=== PATIENT | male | born 1955 | race Hispanic/Latino ===

== ENCOUNTER 2017-12-08 10:20 | Day surgery (SDC) | payer BC ==
[2017-12-01 08:32] VITALS: BMI 30.3
[2017-12-08 10:58] VITALS: TEMP 98
[2017-12-08] MEDS ORDERED: Lidocaine 1% Inj (20ml) ONE (12:53)
[2017-12-08] MEDS ORDERED: Propofol 10 mg/ml Inj (20 ML) ONE ×2 (12:53→13:10)
[2017-12-08] MEDS ORDERED: Sodium Chloride 0.9% 1,000 ML IV SCH (13:30)
[2017-12-08 13:53] VITALS: O2SAT 99
[2017-12-08 15:48] VITALS: BP 130/77; PULSE 63; RESP 16
== END 2017-12-08 15:35 | disposition home or self-care (01) ==
LOC: ENDO 10:20
PROVIDERS: ATTEND Internal Medicine Gastroenterology
DX: K22.2 Esophageal obstruction (principal); D13.0 Benign neoplasm of esophagus; K25.9 Gastric ulcer, unspecified as acute or chronic, without hemorrhage or perforation; K29.50 Unspecified chronic gastritis without bleeding; K44.9 Diaphragmatic hernia without obstruction or gangrene; D50.9 Iron deficiency anemia, unspecified; I10 Essential (primary) hypertension
CPT/HCPCS: 43239; 88305; 88312; 88342; J2704; J7040 ×2

== ENCOUNTER 2018-01-22 15:08 | Inpatient (IN) | payer BC ==
[2018-01-22 15:18] VITALS: BMI 30.9
--- NOTE | 2018-01-22 15:36 | ED PDOC ---
Arrival/HPI - General Time Seen by Provider: 01/22/18 15:11 Historian: Patient - History of Present Illness Narrative History of Present Illness (Text): 62 year old male presents from his PMD office after beeing seen for a hernia. Patient states he was golfing Thursday and that evening he felt as if there was a "brick in his belly". He stated initially his pain was a 2/10. he saw his PMD today who was unable to reduce it and was sent to the hospital for evaluation of the hernia. Patient states the pain is currently 1/10. Patient stated his last bowel movement was at 1pm today. Patient denies nausea, vomiting , chest pain, fever, chills or any other complaints at this time. 01/22/18 15:33 Time/Duration: < week Symptom Onset: Sudden Symptom Course: Improving Quality: Other Severity Level: 1 Activities at Onset: Sleeping Past Medical History - Provider Review Nursing Documentation Reviewed: Yes - Cardiac Hx Pacemaker: No - Neurological Hx Paralysis: No - Hematological/Oncological Hx Blood Transfusions: No - Musculoskeletal/Rheumatological Hx Musculoskeletal Disorders: No - Psychiatric Hx Emotional Abuse: No Hx Physical Abuse: No Hx Substance Use: No - Anesthesia Hx Anesthesia Reactions: No Hx Malignant Hyperthermia: No - Suicidal Assessment Feels Threatened In Home Enviroment: No Family/Social History - Physician Review Nursing Documentation Reviewed: Yes Family/Social History: No Known Family HX Hx Alcohol Use: Yes (1-2 DRINKS/DAY) Hx Substance Use: No Allergies/Home Meds Allergies/Adverse Reactions: Allergies No Known Allergies Allergy (Verified 10/26/14 10:47) Home Medications: Home Meds Medication Instructions Recorded Confirmed Losartan/Hydrochlorothiazide 1 tab PO QPM 12/01/17 12/08/17 [Losartan-Hctz 100-25 mg Tab] Rosuvastatin Calcium [Rosuvastatin 10 mg PO QPM 12/01/17 12/08/17 Calcium] Spironolactone [Aldactone] 25 mg PO QPM 12/01/17 12/08/17 amLODIPine [Norvasc] 10 mg PO QPM 12/01/17 12/08/17 Omeprazole 40 mg PO DAILY 12/08/17 12/08/17 Review of Systems - Review of Systems Constitutional: Normal Eyes: Normal ENT: Normal Respiratory: Normal Cardiovascular: Normal. absent: Chest Pain, Syncope Gastrointestinal: Abdominal Pain. absent: Stool Changes, Constipation, Diarrhea , Nausea, Vomiting Genitourinary Male: Normal Musculoskeletal: Normal Skin: Normal Neurological: Normal Endocrine: Normal Hemo/Lymphatic: Normal Physical Exam Vital Signs Reviewed: Yes Vital Signs Temp Pulse Resp BP Pulse Ox 01/22/18 15:15 98.5 F 80 20 139/72 97 Temperature: Afebrile Blood Pressure: Normal Pulse: Regular Respiratory Rate: Normal Appearance: Positive for: Well-Appearing, Non-Toxic, Comfortable Pain Distress: None Mental Status: Positive for: Alert and Oriented X 3 - Systems Exam Head: Present: Atraumatic, Normocephalic Pupils: Present: PERRL Extroacular Muscles: Present: EOMI Conjunctiva: Present: Normal Mouth: Present: Moist Mucous Membranes Neck: Present: Normal Range of Motion Respiratory/Chest: Present: Clear to Auscultation. No: Respiratory Distress, Accessory Muscle Use Cardiovascular: Present: Regular Rate and Rhythm, Normal S1, S2. No: Murmurs Abdomen: Present: Hernias. No: Tenderness, Distention, Normal Bowel Sounds, Peritoneal Signs Upper Extremity: No: Edema Lower Extremity: No: Edema Neurological: Present: GCS=15, CN II-XII Intact Skin: Present: Warm Psychiatric: Present: Alert, Oriented x 3 Medical Decision Making ED Course and Treatment: Plan -CBC, CMP, IV fluids -surgical consult -VBG shock -reasses Attempted to reduce hernia but not successful 01/22/18 15:39 spoke to surgical assistant certified resident, will evaluate patient and consult Dr. Buck 01/22/18 16:01 - RAD Interpretation Radiology Orders: 01/22/18 15:53 ABDOMEN & PELVIS [ABD PELVIS PO & IV CONTRAST] [CT] Stat - Medication Orders Current Medication Orders: Sodium Chloride (Sodium Chloride 0.9%) 1,000 mls @ 100 mls/hr IV .Q10H [facility] Last Admin: 01/22/18 15:49 Dose: 100 mls/hr eMAR Start Stop Document 01/22/18 15:49 OCS (Rec: 01/22/18 15:50 OCS [id number]) Intravenous Solution Start Date 01/22/18 Start Time 15:49 Disposition/Present on Arrival - Present on Arrival Any Indicators Present on Arrival: No - Disposition
[2018-01-22] MEDS ORDERED: Sodium Chloride 0.9% 1,000 ML IV SCH (15:45)
[2018-01-22] MEDS ORDERED: Iohexol 240 (50 ml) ONE (15:57)
[2018-01-22 16:00] LABS: BASO # 0.01 K/mm3 (0.0-2.0); BASO % 0.1 % (0.0-3.0); EOS # 0.2 (0.0-0.7); EOS % 2.3 % (1.5-5.0); GRAN # 5.07 (1.4-6.5); GRAN % 69.2 % (50.0-68.0); HEMOGLOBIN 13.7 g/dL (14.0-18.0); LYMPH # 1.5 (1.2-3.4); LYMPH % 20.5 % (22.0-35.0); MEAN CELL VOLUME 88.3 fl (80.0-105.0); MEAN CORPUSCULAR HEMOGLOBIN 30.3 pg (25.0-35.0); MEAN CORPUSCULAR HGB CONC 34.3 g/dl (31.0-37.0); MEAN PLATELET VOLUME 8.5 fl (7.0-11.0); MONO # 0.6 (0.1-0.6); MONO % 7.9 % (1.0-6.0); RBC 4.52 10^6/uL (3.5-6.1); WHITE BLOOD COUNT 7.3 10^3/ul (4.5-11.0)
[2018-01-22 16:18] LABS: ALB/GLOB RATIO 1.4 (1.1-1.8); ALBUMIN 4.2 g/dL (3.0-4.8); ALT/SGPT 26 U/L (7-56); AST/SGOT 28 U/L (17-59); BLOOD UREA NITROGEN 22 mg/dL (7-21); GFR AFRICAN-AMERICAN > 60; GFR NON-AFRICAN AMERICAN > 60
[2018-01-22] MEDS ORDERED: Morphine 2 mg/ml ISec IVP STA (16:35)
--- NOTE | 2018-01-22 16:42 | CP.PCM.CON ---
History of Present Illness - History of Present Illness History of Present Illness: General Surgery consult for Dr. Buck Consulted for: incarcerated inguinal hernia Patient is a 62M who presented to the ED referred by primary physician, Dr. Wall, for irreducible left inguinal hernia. Patient states that 2 days ago while golfing he began experiencing a sensation of heaviness in the left lower abdominal quadrant that worsened throughout the day, but was not painful. Yesterday he noted a bulge in his left groin, that was larger this AM and associated with more discomfort, though he denies any pain. Patient states that he the bulge was not reducible and that Dr. Wall was unable to reduce it in his office, so sent him to the ER. Patient denies any abdominal pain, nausea, vomiting, fevers, chills, numbness or tingling, constipation, or diarrhea, or blood in his stools. Says that he is have flatus and he has had a bowel movement this afternoon that was normal color and consistency. This has never occurred before PMH: HTN, HLD, GERD, chronic lower back pain, arthritis, PSH: none ALL; none Social: denies tobacco, drinks 1-2 glasses of wine/beer/day, denies any illicit substances, is a retired financial service representative Review of Systems - Review of Systems All systems: reviewed and no additional remarkable complaints except (as per HPI ) Past Patient History - Infectious Disease Hx of Infectious Diseases: None - Past Medical History & Family History Past Medical History?: Yes Past Family History: Reviewed and not pertinent Pertinent Family History: Father of heart attack @ age 65 - Past Social History Smoking Status: Never Smoked Alcohol: < 2 Drinks/Day (1-2 glasses of wine or beerr/day) Drugs: Denies Home Situation {Lives}: With Family - CARDIAC Hx Pacemaker: No - PULMONARY Hx Respiratory Disorders: No - NEUROLOGICAL Hx Paralysis: No - HEENT Hx HEENT Problems: No - RENAL Hx Chronic Kidney Disease: No - ENDOCRINE/METABOLIC Hx Endocrine Disorders: No - HEMATOLOGICAL/ONCOLOGICAL Hx Blood Transfusions: No - INTEGUMENTARY Hx Dermatological Problems: No - MUSCULOSKELETAL/RHEUMATOLOGICAL Hx Musculoskeletal Disorders: No - GASTROINTESTINAL Hx Gastrointestinal Disorders: Yes Hx Gastroesophageal Reflux: Yes - GENITOURINARY/GYNECOLOGICAL Hx Genitourinary Disorders: No - PSYCHIATRIC Hx Emotional Abuse: No Hx Physical Abuse: No Hx Substance Use: No - SURGICAL HISTORY Hx Surgeries: No - ANESTHESIA Hx Anesthesia Reactions: No Hx Malignant Hyperthermia: No Meds Allergies/Adverse Reactions: Allergies Allergy/AdvReac Type Severity Reaction Status Date / Time No Known Allergies Allergy Verified 10/26/14 10:47 - Medications Medications: Current Medications Sodium Chloride (Sodium Chloride 0.9%) 1,000 mls @ 100 mls/hr IV .Q10H [facility] Last Admin: 01/22/18 15:49 Dose: 100 mls/hr Physical Exam - Constitutional Appears: Well, Non-toxic, No Acute Distress - Head Exam Head Exam: ATRAUMATIC, NORMOCEPHALIC - Eye Exam Eye Exam: Normal appearance. absent: Conjunctival injection, Scleral icterus - ENT Exam ENT Exam: Mucous Membranes Moist, Normal Oropharynx - Respiratory Exam Respiratory Exam: NORMAL BREATHING PATTERN. absent: Accessory Muscle Use, Respiratory Distress - Cardiovascular Exam Cardiovascular Exam: RRR - GI/Abdominal Exam GI & Abdominal Exam: Soft. absent: Distended, Rebound, Tenderness - Exam Exam: Circumcision. absent: Scrotal Swelling, Testicular Tenderness Additional comments: left inguinal hernia, incarcerated, moderately tender to palpation, no overlying skin changes, no erythema or induration - Extremities Exam Extremities exam: Positive for: pedal pulses present. Negative for: calf tenderness, pedal edema - Neurological Exam Neurological exam: Alert, Oriented x3 - Psychiatric Exam Psychiatric exam: Normal Affect, Normal Mood - Skin Skin Exam: Dry, Intact, Warm Additional comments: Erythema solare of the face, trunks, and upper extremities Results - Vital Signs Recent Vital Signs: Last Vital Signs Temp 98.5 F 01/22/18 15:15 Pulse 80 01/22/18 15:15 Resp 20 01/22/18 15:15 BP 139/72 01/22/18 15:15 Pulse Ox 97 01/22/18 15:15 - Labs Result Diagrams: 01/22/18 15:45 01/22/18 15:45 Labs: Laboratory Results - last 24 hr 01/22/18 01/22/18 15:45 15:45 WBC 7.3 RBC 4.52 Hgb 13.7 L Hct 39.9 L MCV 88.3 MCH 30.3 MCHC 34.3 RDW 12.0 Plt Count 190 MPV 8.5 Gran % 69.2 H Lymph % (Auto) 20.5 L [place] % (Auto) 7.9 H Eos % (Auto) 2.3 Baso % (Auto) 0.1 Gran # 5.07 Lymph # (Auto) 1.5 [place] # (Auto) 0.6 Eos # (Auto) 0.2 Baso # (Auto) 0.01 Sodium 140 Potassium 4.6 Chloride 101 Carbon Dioxide 29 Anion Gap 14 BUN 22 H Creatinine 0.9 Est GFR ( Amer) > 60 Est GFR (Non-Af Amer) > 60 Random Glucose 96 Calcium 9.0 Total Bilirubin 0.4 AST 28 ALT 26 Alkaline Phosphatase 72 Total Protein 7.3 Albumin 4.2 Globulin 3.1 Albumin/Globulin Ratio 1.4 Assessment & Plan - Assessment and Plan (Free Text) Assessment: 62M with incacerated left inguinal hernia, possible diverticulitis CT with PO contrast demonstrated fat containing left inguinal hernia with fat stranding of the contents and inflammation of the nearby sigmoid colon. Also diffuse diverticulosis of the colon worst in the sigmoid, concern for diverticulitis of the sigmoid near the hernia site Plan: Admit to med/surgery NPO IVF PRN pain and nausea medication IV antibiotics Repeat labs in the AM No indication for immediate surgical intervention--patient is afebrile, hemodynamically stable, only mildly tender, abdomen soft, has no bowel contents in the hernia, and has no leukocytosis. Will re-assess in the morning after hydration, pain control, and will decide about possible OR for hernia repair at that time Close vitals monitoring Discussed with Dr. Buck who agrees with above Qi Monteiro, PGY2
[2018-01-22 17:32] LABS: VENOUS BLOOD GAS BASE EXCESS 3.5 mmol/L (0.0-2.0); VENOUS BLOOD GAS PO2 26 mm/Hg (30-55); VENOUS BLOOD PH 7.34 (7.32-7.43)
--- NOTE | 2018-01-22 19:43 | CT ---
EXAM: CT Abdomen and Pelvis With Intravenous Contrast EXAM DATE/TIME: 01/22/2018 3:53 PM CLINICAL HISTORY: 62 years old, male; Pain; Abdominal pain; Localized; Left; Additional info: Hernia TECHNIQUE: Axial computed tomography images of the abdomen and pelvis with intravenous contrast. All CT scans at this facility use at least one of these dose optimization techniques: automated exposure control; mA and/or kV adjustment per patient size (includes targeted exams where dose is matched to clinical indication); or iterative reconstruction. Coronal and sagittal reformatted images were created and reviewed. COMPARISON: There are no prior studies for comparison. FINDINGS: Lung bases: Heart size is normal. There is a hiatal hernia. There is dependent atelectasis at the lung bases. ABDOMEN: Liver: unremarkable Gallbladder and bile ducts: unremarkable Pancreas: unremarkable Spleen: unremarkable Adrenals: unremarkable Kidneys and ureters: There is a 6 mm left renal cyst. There is a very small right renal cyst. There is minimal right renal scarring. There is mild pelvo-ureterectasis. Stomach and bowel: Stomach is almost empty. Rotation is normal. There is oral contrast in mid and distal small bowel. There is no obstruction. Terminal ileum is unremarkable. Appendix is not visualized. There is no pericecal inflammation.There is moderate stool in the colon. There is diverticulosis. Diverticular disease is greatest in the sigmoid. A loop of sigmoid extends into the region of the orifice of the left inguinal hernia. There is mild edema and inflammation about the sigmoid at the orifice to the hernia. There is no definite extension of bowel into the hernia. PELVIS: Appendix: See stomach and bowel Bladder: Bladder is distended. Reproductive: Prostate is mildly enlarged. Seminal vesicles are unremarkable. ABDOMEN and PELVIS: Intraperitoneal space: There is no free air or free fluid. Bones/joints: There are degenerative changes in the osseus structures. Soft tissues: There is a large fat-containing left inguinal hernia. There is mild inflammation in the herniated fat. There is minimal fluid in the left inguinal hernia. There is a small fat containing right inguinal hernia Vasculature: There are vascular calcifications. Lymph nodes: There is no pathologic adenopathy. IMPRESSION: Large left fat-containing inguinal hernia with a small amount of fluid and inflammation suggests incarceration; extensive sigmoid diverticulosis, inflammation about the sigmoid adjacent to the orifice of the left inguinal hernia suggest possible diverticulitis; no acute solid visceral abnormality Additional nonemergent findings as described above.
[2018-01-22] MEDS ORDERED: Morphine 4 mg/ml ISec IVP STA (19:57)
--- NOTE | 2018-01-22 20:06 | ED PDOC ---
Arrival/HPI - General Historian: Patient - History of Present Illness Time/Duration: < week Symptom Onset: Sudden Symptom Course: Unchanged Quality: Other ("brick in belly") Severity Level: 1 Activities at Onset: Sleeping <Eddie Mac - Last Filed: 01/22/18 20:44> <GouldLarry - Last Filed: 01/22/18 21:09> - General Chief Complaint: Abdominal Pain Time Seen by Provider: 01/22/18 15:11 - History of Present Illness Narrative History of Present Illness (Text): 62 year old male presents from his PMD office with a inguinal hernia. Patient states he was golfing this past thursday and afterwards felt like there was a "brick in his belly". He felt a mass in the abdominal area but his pain was 2/ 10. He went to his PMD today around 2 pm and PMD was unable to reduce the hernia and was sent here for evaluation. Patient states he had a bowel movement around 1pm today, denies any nausea,vomiting, fever, chills, SOB, CP or any other complaints at this time. (Eddie Mac) Past Medical History - Provider Review Nursing Documentation Reviewed: Yes - Infectious Disease Hx of Infectious Diseases: None - Cardiac Hx Pacemaker: No - Pulmonary Hx Respiratory Disorders: No - Neurological Hx Paralysis: No - HEENT Hx HEENT Disorder: No - Renal Hx Renal Disorder: No - Endocrine/Metabolic Hx Endocrine Disorders: No - Hematological/Oncological Hx Blood Transfusions: No - Integumentary Hx Dermatological Disorder: No - Musculoskeletal/Rheumatological Hx Musculoskeletal Disorders: No - Gastrointestinal Hx Gastrointestinal Disorders: Yes Hx Gastroesophageal Reflux: Yes - Genitourinary/Gynecological Hx Genitourinary Disorders: No - Psychiatric Hx Emotional Abuse: No Hx Physical Abuse: No Hx Substance Use: No - Anesthesia Hx Anesthesia Reactions: No Hx Malignant Hyperthermia: No - Suicidal Assessment Feels Threatened In Home Enviroment: No <Eddie Mac - Last Filed: 01/22/18 20:44> Family/Social History - Physician Review Nursing Documentation Reviewed: Yes Family/Social History: No Known Family HX Smoking Status: Never Smoked Hx Alcohol Use: Yes (1-2 DRINKS/DAY) Hx Substance Use: No <Eddie Mac - Last Filed: 01/22/18 20:44> Allergies/Home Meds <Eddie Mac - Last Filed: 01/22/18 20:44> <Larry Gould - Last Filed: 01/22/18 21:09> Allergies/Adverse Reactions: Allergies No Known Allergies Allergy (Verified 10/26/14 10:47) Home Medications: Home Meds Medication Instructions Recorded Confirmed Losartan/Hydrochlorothiazide 1 tab PO QPM 12/01/17 01/22/18 [Losartan-Hctz 100-25 mg Tab] Rosuvastatin Calcium [Rosuvastatin 10 mg PO QPM 12/01/17 01/22/18 Calcium] Spironolactone [Aldactone] 25 mg PO QPM 12/01/17 01/22/18 amLODIPine [Norvasc] 10 mg PO QPM 12/01/17 01/22/18 Omeprazole 40 mg PO DAILY 12/08/17 01/22/18 Review of Systems - Review of Systems Constitutional: Normal Eyes: Normal ENT: Normal Respiratory: Normal Cardiovascular: Normal Gastrointestinal: Abdominal Pain. absent: Stool Changes, Constipation, Diarrhea , Nausea, Vomiting Genitourinary Male: absent: Dysuria, Frequency, Hematuria Musculoskeletal: absent: Back Pain Skin: Normal Neurological: Normal Endocrine: Normal Hemo/Lymphatic: Normal Psychiatric: Normal <Eddie Mac - Last Filed: 01/22/18 20:44> Physical Exam Vital Signs Reviewed: Yes Temperature: Afebrile Blood Pressure: Normal Pulse: Regular Respiratory Rate: Normal Appearance: Positive for: Well-Appearing, Non-Toxic, Comfortable Pain Distress: Mild Mental Status: Positive for: Alert and Oriented X 3 - Systems Exam Head: Present: Atraumatic, Normocephalic Pupils: Present: PERRL Extroacular Muscles: Present: EOMI Conjunctiva: Present: Normal Mouth: Present: Moist Mucous Membranes Neck: Present: Normal Range of Motion Respiratory/Chest: Present: Clear to Auscultation, Good Air Exchange. No: Respiratory Distress, Accessory Muscle Use Cardiovascular: Present: Regular Rate and Rhythm, Normal S1, S2. No: Murmurs Abdomen: Present: Tenderness, Hernias (left inguinal hernia ). No: Distention, Peritoneal Signs, Guarding Upper Extremity: No: Edema Lower Extremity: No: Edema Neurological: Present: GCS=15, CN II-XII Intact Skin: Present: Warm Psychiatric: Present: Alert, Oriented x 3 <Eddie Mac Last Filed: 01/22/18 20:44> Vital Signs Temp Pulse Resp BP Pulse Ox 01/22/18 19:37 98.2 F 70 20 140/71 98 01/22/18 15:15 98.5 F 80 20 139/72 97 Medical Decision Making - Lab Interpretations I have reviewed the lab results: Yes <Eddie Mac - Last Filed: 01/22/18 20:44> Re-evaluation Time: 19:30 Reassessment Condition: Improving,but remains with symptoms - Critical Care Critical Care Minutes: 30 minutes Critical Care Time: Excluding Proc Time - Lab Interpretations Interpretation: All labs normal - RAD Interpretation Software Recruiter: Radiologist <Larry Gould - Last Filed: 01/22/18 21:09> ED Course and Treatment: Plan -CBC, CMP, Fluids, morphine -CT abdomen -reasses -surgery consult CT abdomen: Large left fat-containing inguinal hernia with a small amount of fluid and inflammation suggests incarceration; extensive sigmoid diverticulosis, inflammation about the sigmoid adjacent to the orifice of the left inguinal hernia suggest possible diverticulitis; no acute solid visceral abnormality Patient will be admitted under Dr. Woodall service with Dr. Buck on consult for surgery Patient states pain is radiating to his belly, additional pain medication given 01/22/18 20:50 (Eddie Mac) I performed the hx and physical exam of the patient and discussed their mgt with the RESIDENT. I reviewed the RESIDENT's NOTE and agree with the assessment and plan of care. exam: abd - + left lower abd tenderness, noted inguinal region swelling/unable to reduce, + inguinal region tenderness on exam; +BS/soft/nd, no crawford's sign, no mcburney's point tenderness, no masses/rebound/guarding/rigidity; well nourished male pt is resting in bed, awaiting diagnostic results will page surgery [address] results, will reconsult surgery and contact Dr Alfred (spinneret person for Dr Wall) for admission pt is made aware of his medical results pt currently has more pain pt will be admitted for further treatment/monitor (Larry Gould) - Critical Care Narrative Critical Care (Text): 01/22/18 21:00 critical care time: 30min, excluding procedure time, excluding time teaching residents/students/mid-level providers; including initial eval/diagnosis, diagnostic interpretation, re-eval, consultations, final disposition (Larry Gould) - Lab Interpretations Lab Results: 01/22/18 15:45 01/22/18 15:45 Lab Results 01/22/18 17:10: pO2 26 L, VBG pH 7.34, VBG pCO2 57.0, VBG HCO3 30.8 H, VBG Total CO2 32.5 H, VBG O2 Sat (Calc) 54.8, VBG Base Excess 3.5 H, VBG Potassium 3.9, Glucose 91, Lactate 0.8, FiO2 21.0, Sodium 137.0, Chloride 101.0, Venous Blood Potassium 3.9 01/22/18 15:45: Sodium 140, Potassium 4.6, Chloride 101, Carbon Dioxide 29, Anion Gap 14, BUN 22 H, Creatinine 0.9, Est GFR ( Amer) > 60, Est GFR ( Non-Af Amer) > 60, Random Glucose 96, Calcium 9.0, Total Bilirubin 0.4, AST 28, ALT 26, Alkaline Phosphatase 72, Total Protein 7.3, Albumin 4.2, Globulin 3.1, Albumin/Globulin Ratio 1.4 01/22/18 15:45: WBC 7.3, RBC 4.52, Hgb 13.7 L, Hct 39.9 L, MCV 88.3, MCH 30.3, MCHC 34.3, RDW 12.0, Plt Count 190, MPV 8.5, Gran % 69.2 H, Lymph % (Auto) 20.5 L, [place] % (Auto) 7.9 H, Eos % (Auto) 2.3, Baso % (Auto) 0.1, Gran # 5.07, Lymph # (Auto) 1.5, [place] # (Auto) 0.6, Eos # (Auto) 0.2, Baso # (Auto) 0.01 - RAD Interpretation Narrative RAD Interpretations (Text): 01/22/18 21:02 CT ABD/PELVIS: IMPRESSION: Large left fat-containing inguinal hernia with a small amount of fluid and inflammation suggests incarceration; extensive sigmoid diverticulosis, inflammation about the sigmoid adjacent to the orifice of the left inguinal hernia suggest possible diverticulitis; no acute solid visceral abnormality Additional nonemergent findings as described above. Thank you for allowing us to participate in the care of your patient. Dictated and Authenticated by: Sarah Alston MD (Larry Gould) Radiology Orders: 01/22/18 15:53 ABDOMEN & PELVIS [ABD PELVIS PO & IV CONTRAST] [CT] Stat - Medication Orders Current Medication Orders: Sodium Chloride (Sodium Chloride 0.9%) 1,000 mls @ 100 mls/hr IV .Q10H [facility] Last Admin: 01/22/18 15:49 Dose: 100 mls/hr eMAR Start Stop Document 01/22/18 15:49 OCS (Rec: 01/22/18 15:50 OCS [id number]) Intravenous Solution Start Date 01/22/18 Start Time 15:49 Lactated Ringer's (Lactated Ringer's) 1,000 mls @ 125 mls/hr IV .Q8H [facility] Ciprofloxacin (Cipro 400mg/200ml Dsw) 400 mg in 200 mls @ 133.3 mls/hr IVPB Q12 ALEXANDER PRN Reason: Protocol Stop: 01/22/18 23:31 Metronidazole (Flagyl) 500 mg in 100 mls @ 100 mls/hr IVPB Q8 ALEXANDER PRN Reason: Protocol Discontinued Medications Morphine Sulfate (Morphine) 4 mg IVP STAT STA Stop: 01/22/18 19:58 Last Admin: 01/22/18 20:05 Dose: 4 mg MAR Pain Assessment Document 01/22/18 20:05 OCS (Rec: 01/22/18 20:05 [id number] Pain Reassessment Is this a pain reassessment? No Sleep Is patient sleeping during reassessment? No Presence of Pain Presence of Pain Yes Pain Scale Used Pain Scale Used Numeric Location Left, Right or Bilateral Left Upper or Lower Lower Pain Location Body Site Abdomen Description Description Constant Intensity of Pain at present 8 Aggravating Factors ADL's IVP Administration Document 01/22/18 20:05 OCS (Rec: 01/22/18 20:05 [id number] Charges for Administration # of IVP Administrations 1 Disposition/Present on Arrival - Present on Arrival Any Indicators Present on Arrival: No History of DVT/PE: No History of Uncontrolled Diabetes: No Urinary Catheter: No History of Decub. Ulcer: No History Surgical Site Infection Following: None - Disposition Have Diagnosis and Disposition been Completed?: Yes Disposition Time: 20:52 <Eddie Mac - Last Filed: 01/22/18 20:44> - Disposition Patient Plan: Admission <Larry Gould - Last Filed: 01/22/18 21:09> - Disposition Diagnosis: Inguinal hernia, Diverticulosis, Diverticulitis, Incarcerated inguinal hernia Disposition: HOSPITALIZED Patient Problems: Current Active Problems Problem Status Onset Diverticulitis Acute Diverticulosis Acute Inguinal hernia Acute Condition: STABLE
[2018-01-22] MEDS ORDERED: Lactated Ringer's 1,000 ML IV SCH (20:45)
[2018-01-22] MEDS ORDERED: Morphine 4 mg/ml ISec IVP PRN (21:11)
[2018-01-22] MEDS ORDERED: Ciprofloxacin 400mg/200ml D5W 400 MG/200 ML BAG IVPB SCH (22:00)
[2018-01-22] MEDS: metroNIDAZOLE IV 500 mg/100 ml 500 MG/100 ML BAG IVPB SCH (22:52)
[2018-01-23] MEDS ORDERED: Lactated Ringer's 1,000 ML IV SCH (00:52)
[2018-01-23] MEDS: metroNIDAZOLE IV 500 mg/100 ml 500 MG/100 ML BAG IVPB SCH ×3 (05:44→21:55)
--- NOTE | 2018-01-23 08:26 | CP.PCM.PN ---
Objective - Vital Signs/Intake and Output Vital Signs (last 24 hours): Temp Pulse Resp BP Pulse Ox 97.6 F 68 20 134/76 97 01/23/18 08:09 01/23/18 08:09 01/23/18 08:09 01/23/18 08:09 01/23/18 08:09 Intake and Output: 01/23/18 01/23/18 06:59 18:59 Intake Total 0 Balance 0 - Medications Medications: Current Medications Metronidazole (Flagyl) 500 mg in 100 mls @ 100 mls/hr IVPB Q8 ALEXANDER PRN Reason: Protocol Last Admin: 01/23/18 05:44 Dose: 100 mls/hr Ciprofloxacin (Cipro 400mg/200ml Dsw) 400 mg in 200 mls @ 133.3 mls/hr IVPB Q12H [facility]ER PRN Reason: Protocol Stop: 01/24/18 11:31 Lactated Ringer's (Lactated Ringer's) 1,000 mls @ 150 mls/hr IV .Q6H40M [facility] Last Admin: 01/23/18 05:40 Dose: Not Given Morphine Sulfate (Morphine) 4 mg IVP Q4H PRN PRN Reason: Pain, moderate (4-7) Last Admin: 01/22/18 23:29 Dose: 4 mg
[2018-01-23 08:51] LABS: BASO # 0.01 K/mm3 (0.0-2.0); BASO % 0.2 % (0.0-3.0); EOS # 0.2 (0.0-0.7); EOS % 3.4 % (1.5-5.0); GRAN # 3.17 (1.4-6.5); GRAN % 67.6 % (50.0-68.0); HEMOGLOBIN 13.1 g/dL (14.0-18.0); LYMPH # 0.9 (1.2-3.4); LYMPH % 19.4 % (22.0-35.0); MEAN CORPUSCULAR HEMOGLOBIN 30.3 pg (25.0-35.0); MEAN CORPUSCULAR HGB CONC 34.5 g/dl (31.0-37.0); MEAN PLATELET VOLUME 8.4 fl (7.0-11.0); MONO # 0.4 (0.1-0.6); MONO % 9.4 % (1.0-6.0); RBC 4.32 10^6/uL (3.5-6.1); RED CELL DISTRIBUTION WIDTH 11.9 % (11.5-14.5); WHITE BLOOD COUNT 4.7 10^3/ul (4.5-11.0)
[2018-01-23 08:56] LABS: INR 0.99 (0.93-1.08); PARTIAL THROMBOPLASTIN TIME 28.8 Seconds (25.1-36.5); PROTHROMBIN TIME 11.4 SECONDS (9.4-12.5)
[2018-01-23 09:07] LABS: BLOOD UREA NITROGEN 16 mg/dL (7-21); CALCIUM 8.9 mg/dL (8.4-10.5); GFR AFRICAN-AMERICAN > 60; GFR NON-AFRICAN AMERICAN > 60
--- NOTE | 2018-01-23 09:24 | RAD ---
HISTORY: Preop COMPARISON: 02/09/2015. FINDINGS: LUNGS: No active pulmonary disease. PLEURA: No significant pleural effusion identified, no pneumothorax apparent. CARDIOVASCULAR: No radiographic findings to suggest acute or significant cardiovascular disease. OSSEOUS STRUCTURES: No significant abnormalities. VISUALIZED UPPER ABDOMEN: Normal. OTHER FINDINGS: None. IMPRESSION: No active disease. No significant interval change compared to the prior examination(s).
[2018-01-23] MEDS: Ciprofloxacin 400mg/200ml D5W 400 MG/200 ML BAG IVPB SCH ×2 (10:23→21:55)
[2018-01-23] MEDS ORDERED: Sod Polystyrene Sulf 15 gm/60 ml Susp PO ONE (12:04)
[2018-01-23] MEDS ORDERED: Sodium Chloride 0.9% 1,000 ML IV SCH ×2 (12:15→16:45)
[2018-01-23] MEDS ORDERED: Bupivacaine 0.5% Inj(30mL) ONE (14:39)
[2018-01-23] MEDS ORDERED: Lidocaine 1% Inj (20ml) ONE (14:39)
[2018-01-23] MEDS ORDERED: Propofol 10 mg/ml Inj (20 ML) ONE (14:54)
[2018-01-23] MEDS ORDERED: Succinylcholine 200 mg/10 ml Inj IV ONE (14:55)
[2018-01-23] MEDS ORDERED: Rocuronium 10 mg/ml (5 ml) ONE (14:55)
[2018-01-23] MEDS ORDERED: HYDROmorphone 0.5 mg/0.5 ml ISec IVP PRN (16:32)
--- NOTE | 2018-01-23 16:34 | PCM.SURG1 ---
Surgeon's Initial Post Op Note - Surgeon's Notes Surgeon: Dr. Buck Rehabilitation Attendant: Citlaly PGY1 Type of Anesthesia: General Endo Anesthesia Administered By: Dr. Villalta Pre-Operative Diagnosis: Left inguinal hernia Operative Findings: Left direct inguinal hernia Post-Operative Diagnosis: Left direct inguinal hernia Operation Performed: Left inguinal hernia repair with mesh Specimen/Specimens Removed: N/A Estimated Blood Loss: EBL {In ML}: 5 Blood Products Given: N/A Post-Op Condition: Good Date of Surgery/Procedure: 01/23/18 Time of Surgery/Procedure: 16:33
--- NOTE | 2018-01-23 22:44 | CARD ---
APPROVED REPORT EKG Measurement Heart [id number] <Conclusion> Sinus bradycardia Otherwise normal ECG
[2018-01-24] MEDS: metroNIDAZOLE IV 500 mg/100 ml 500 MG/100 ML BAG IVPB SCH (05:36)
--- NOTE | 2018-01-24 06:11 | HP ---
HISTORY OF PRESENT ILLNESS: Patient is a 62-year-old patient of Dr. Wall; he saw Dr. Wall on Thursday. He had a hard cough, after that he felt heaviness in his left inguinal area; he went to see Dr. Wall, who sent him to have a CAT scan done that shows he has left inguinal hernia, so he is being admitted for further evaluation since CAT scan showed incarceration. Patient denies any nausea or vomiting. No history of chest pain. No shortness of breath. Denies any fever or chills. No history of hemoptysis. No hematemesis. No rectal bleeding. PAST MEDICAL HISTORY: Significant for hypertension, gastroesophageal reflux disease, chronic back pain. ALLERGIES: NOT ALLERGIC TO ANY MEDICATION. SOCIAL HISTORY: He is , lives with his . Denies smoking or drinking; however, he drinks socially. MEDICATIONS: At home, he is on amlodipine 10 mg daily, spironolactone 25 daily, losartan 100 mg daily, atorvastatin 10 mg daily, and omeprazole 40 mg daily. PHYSICAL EXAMINATION: GENERAL: He is awake, alert, and oriented; not in any distress. VITAL SIGNS: He is afebrile, pulse 50, respirations 16, blood pressure 136/76. LUNGS: Bilateral good airflow. No rhonchi or crackle. HEART: S1 and S2 audible. ABDOMEN: Soft. Nontender. No guarding. NEUROLOGICAL: He is awake, alert, oriented. Able to communicate. He has fullness in the left groin, but no reproducible tenderness. LABORATORY DATA: WBC 4.7, hemoglobin 13, hematocrit 38, platelets 157. PT is 11.4, INR 0.99. Chemistries: Sodium 141, potassium , chloride 102, CO2 of 31, BUN 16, creatinine 0.9, blood sugar of 109. ASSESSMENT: 1. Left inguinal hernia, incarnated. 2. Diverticulosis and of diverticulitis. 3. Hypertension. 4. Hyperlipidemia. PLAN: Patient had surgical intervention done already. He is on Cipro. He has been started on metronidazole. We will resume his usual medication. Analgesics as needed. Follow up his electrolytes and CBC in the a.m. Remains stable, possible discharge in the a.m. Venus Howard MD [facility] # [id number]
[2018-01-24] MEDS ORDERED: Pantoprazole 40 mg EC Tab PO SCH ×2 (06:30)
[2018-01-24 07:13] LABS: BASO # 0.01 K/mm3 (0.0-2.0); BASO % 0.1 % (0.0-3.0); EOS # 0.1 (0.0-0.7); EOS % 1.8 % (1.5-5.0); GRAN # 5.4 (1.4-6.5); GRAN % 74.8 % (50.0-68.0); HEMOGLOBIN 12.3 g/dL (14.0-18.0); LYMPH % 14.4 % (22.0-35.0); MEAN CELL VOLUME 88.6 fl (80.0-105.0); MEAN CORPUSCULAR HEMOGLOBIN 30.4 pg (25.0-35.0); MEAN CORPUSCULAR HGB CONC 34.4 g/dl (31.0-37.0); MEAN PLATELET VOLUME 8.5 fl (7.0-11.0); MONO # 0.6 (0.1-0.6); MONO % 8.9 % (1.0-6.0); RBC 4.04 10^6/uL (3.5-6.1); RED CELL DISTRIBUTION WIDTH 11.9 % (11.5-14.5); WHITE BLOOD COUNT 7.2 10^3/ul (4.5-11.0)
[2018-01-24 07:46] LABS: ALB/GLOB RATIO 1.2 (1.1-1.8); ALBUMIN 3.3 g/dL (3.0-4.8); ALT/SGPT 27 U/L (7-56); AST/SGOT 25 U/L (17-59); BLOOD UREA NITROGEN 16 mg/dL (7-21); CALCIUM 8.2 mg/dL (8.4-10.5); GFR AFRICAN-AMERICAN > 60; GFR NON-AFRICAN AMERICAN > 60
[2018-01-24 08:42] VITALS: BP 126/76; PULSE 75; RESP 20; TEMP 98; O2SAT 97
--- NOTE | 2018-01-24 08:44 | CP.PCM.PN ---
Subjective - Date & Time of Evaluation Date of Evaluation: 01/24/18 Time of Evaluation: 06:50 - Subjective Subjective: General Surgery Note for Dr. Terrell Patient seen and examined at bedside. No acute event overnight. Patient is s/p left inguinal hernia repair with mesh POD#1. Patient states pain is controlled with medication. He is tolerating regular diet. He is passing gas but no BM. Patient is ambulating without difficulty. Patient has no complaints at this time. He is clear for discharge from surgical standpoint. Objective - Vital Signs/Intake and Output Vital Signs (last 24 hours): Temp Pulse Resp BP Pulse Ox 98 F 75 20 126/76 97 01/24/18 08:41 01/24/18 08:41 01/24/18 08:41 01/24/18 08:41 01/24/18 08:41 Intake and Output: 01/24/18 01/24/18 06:59 18:59 Intake Total 240 Output Total 640 Balance -400 - Medications Medications: Current Medications Amlodipine Besylate (Norvasc) 10 mg PO DAILY [facility] Atorvastatin Calcium (Lipitor) 40 mg PO DAILY [facility] Hydrochlorothiazide (Hydrodiuril) 25 mg PO DAILY [facility] Metronidazole (Flagyl) 500 mg in 100 mls @ 100 mls/hr IVPB Q8 [facility] PRN Reason: Protocol Last Admin: 01/24/18 05:36 Dose: 100 mls/hr Ciprofloxacin (Cipro 400mg/200ml Dsw) 400 mg in 200 mls @ 133.3 mls/hr IVPB Q12H [facility] PRN Reason: Protocol Stop: 01/24/18 11:31 Last Admin: 01/23/18 21:55 Dose: 133.3 mls/hr Sodium Chloride (Sodium Chloride 0.9%) 1,000 mls @ 150 mls/hr IV .Q6H40M [facility] Last Admin: 01/23/18 13:00 Dose: 150 mls/hr Losartan Potassium (Cozaar) 100 mg PO DAILY [facility] Morphine Sulfate (Morphine) 4 mg IVP Q4H PRN PRN Reason: Pain, moderate (4-7) Last Admin: 01/22/18 23:29 Dose: 4 mg Pantoprazole Sodium (Protonix Ec Tab) 40 mg PO 0630 [facility] Last Admin: 01/24/18 05:36 Dose: 40 mg Spironolactone (Aldactone) 25 mg PO DAILY [facility] - Labs Labs: 01/24/18 07:00 01/24/18 07:00 PT 11.4 SECONDS (9.4-12.5) 01/23/18 08:30 INR 0.99 (0.93-1.08) 01/23/18 08:30 APTT 28.8 Seconds (25.1-36.5) 01/23/18 08:30 - Constitutional Appears: No Acute Distress - Head Exam Head Exam: ATRAUMATIC, NORMOCEPHALIC - Eye Exam Eye Exam: EOMI, Normal appearance Pupil Exam: PERRL - ENT Exam ENT Exam: Mucous Membranes Moist - Respiratory Exam Respiratory Exam: NORMAL BREATHING PATTERN - Cardiovascular Exam Cardiovascular Exam: REGULAR RHYTHM - GI/Abdominal Exam GI & Abdominal Exam: Soft, Normal Bowel Sounds. absent: Distended, Firm, Guarding, Rigid, Tenderness, Rebound Additional comments: left inguinal incision site clean dry and intact - Extremities Exam Extremities Exam: Normal Capillary Refill - Neurological Exam Neurological Exam: Alert, Awake, Oriented x3 - Psychiatric Exam Psychiatric exam: Normal Affect, Normal Mood - Skin Skin Exam: Dry, Intact, Normal Color, Warm Assessment and Plan - Assessment and Plan (Free Text) Assessment: 62M s/p left inguinal hernia repair with mesh POD#1. Plan: -Clear for discharge from surgical standpoint -Resume all home medications as previously prescribed -Follow up with Dr. Terrell within 1-2 weeks -No heavy lifting for 4 weeks -keep area clean and dry -No dietary restrictions -May shower -Discussed with Dr. Heber Boucher PGY2
[2018-01-24] MEDS ORDERED: Non Formulary Medication (Losartan/Hydrochlorothiazide [Losartan-Hctz 100-25 Mg Tab] 1 TAB PO SCH (10:00)
--- NOTE | 2018-01-25 14:04 | DS ---
HOSPITAL COURSE: The patient is 62 years old, seen and examined, underwent left inguinal hernia repair, doing well, ambulating. No nausea, vomiting, no diarrhea. Eating and tolerating. PHYSICAL EXAMINATION: VITAL SIGNS: He is afebrile, pulse 75, respirations 20 and blood pressure 126/76. LUNGS: Bilateral good airflow. No rhonchi or crackle. HEART: S1, S2 audible. ABDOMEN: Soft, nontender. No rebound, no guarding. NEUROLOGICAL: He is awake, alert, oriented, and communicative. LABORATORY DATA: WBC 7.3, hemoglobin 12.3, hematocrit 35.8 and platelets of 158. Chemistry: Sodium 141, potassium 4.2, chloride 106, CO2 of 27, BUN 16, creatinine 0.9, and blood sugar of 106. ASSESSMENT: 1. Left inguinal hernia, status post repair. 2. Hypertension. 3. Hyperlipidemia. PLAN: The patient is being discharged home. No need for antibiotics. No analgesics. The patient states he is not in pain, he will take Aleve as needed and will go back to his usual medications and follow up with . Venus Howard MD
--- NOTE | 2018-01-28 23:58 | OP ---
PROCEDURE DATE: 01/23/2018 PREOPERATIVE DIAGNOSIS: Incarcerated left inguinal hernia. POSTOPERATIVE DIAGNOSIS: Incarcerated left inguinal hernia. OPERATION PERFORMED: Left inguinal herniorrhaphy. SURGEON: Dimitris Buck M.D. ALTERATION INSPECTOR: Dean Boucher DO DESCRIPTION OF PROCEDURE: In the operating room, patient was identified by name, name of the procedure, laterality, and my addison. The preoperative antibiotics have been given. When the timeout was successful, left inguinal incision was made through the skin and subcutaneous tissues and the external oblique identified. Going a little bit lower, the bend of the fascia was identified. Going a little bit higher, the external oblique was identified. The external oblique was opened in the direction of its fibers and the external ring identified and opened. on the cut ends and the undersurface was cleaned proximally and distally, medially and laterally. The cord was then circumscribed at the pubic tubercle and exposed with a rubber band of a [place] drain. Clearly, the sac nicely from it after it had spontaneously reduced. The hernia sac was then identified, it was clearly a direct inguinal hernia, but the defect was sized about a quarter. This was circumferentially dissected pulling the cord away. The hernia was pulled up and the base was cut with a cautery circumferentially. The transversalis was then from the sac circumferentially, putting snaps on each of the four corners. The hernia sac was then reduced with retroperitoneal dissection that allowed a very nice pocket. A large PerFix hernia plug was then placed, it was sutured in 3 corners with Vicryl and the fascia was then closed over it with Prolene to get a beautiful repair. The mesh was then trimmed on the distal end and put around the cord with Vicryl. It was then tamped down to a neutral position. The external oblique was closed with Vicryl, Mi's was closed with Vicryl, subcutaneous tissue was closed with Vicryl, skin was closed with a PDS 4-0 subcuticular stitch and Dermabond. put down. Patient was taken to recovery room in good condition after the sponge and needle count was declared correct. Dimitris Buck MD [facility] # [id number]
== END 2018-01-24 11:38 | disposition home or self-care (01) | DRG 351 ==
LOC: ED 15:08 → ERH 20:48 → 5RSO 22:21
PROVIDERS: ADMIT Internal Medicine Nephrology; ATTEND Internal Medicine Nephrology
PROC: 0YU60JZ Supplement Left Inguinal Region with Synthetic Substitute, Open Approach (ICD-10-PCS; principal; 2018-01-23 15:00)
DX: K40.30 Unilateral inguinal hernia, with obstruction, without gangrene, not specified as recurrent (principal); K57.32 Diverticulitis of large intestine without perforation or abscess without bleeding; K21.9 Gastro-esophageal reflux disease without esophagitis; I10 Essential (primary) hypertension; M19.90 Unspecified osteoarthritis, unspecified site; E78.5 Hyperlipidemia, unspecified; M54.5 Low back pain; G89.29 Other chronic pain; Z82.49 Family history of ischemic heart disease and other diseases of the circulatory system

== ENCOUNTER 2018-04-23 06:25 | Day surgery (SDC) | payer MEDICARE ==
[2018-04-23] MEDS ORDERED: Propofol 10 mg/ml Inj (20 ML) ONE (08:40)
[2018-04-23] MEDS ORDERED: Sodium Chloride 0.9% 1,000 ML IV SCH (09:15)
[2018-04-23 09:45] VITALS: PULSE 65
[2018-04-23 10:34] VITALS: BP 117/68; RESP 16; TEMP 97.7; O2SAT 96
== END 2018-04-23 10:50 | disposition home or self-care (01) ==
LOC: ENDO 06:25
PROVIDERS: ATTEND Internal Medicine Gastroenterology
DX: D13.0 Benign neoplasm of esophagus (principal); K22.2 Esophageal obstruction; K44.9 Diaphragmatic hernia without obstruction or gangrene; K22.70 Barrett's esophagus without dysplasia; K29.70 Gastritis, unspecified, without bleeding; K31.9 Disease of stomach and duodenum, unspecified; I10 Essential (primary) hypertension
CPT/HCPCS: 43239; 88305; 88312; 88342; J2001; J2704; J3010; J7030; J7040